=== PATIENT | female | born 1990 | race American Indian/Alaskan Native ===

== ENCOUNTER 2016-12-12 07:26 | Inpatient (IN) | payer BC ==
[~2016-12-12] VITALS: Ht 157.5 cm; Wt 121.1 kg
[~2016-12-12 07:26] MED LIST: PREN-385 PO
[2016-12-12] MEDS ORDERED: LACTATED RINGERS 1,000 ML IV SCH (07:40)
[2016-12-12] MEDS ORDERED: NOVN SUBQ (07:48)
[2016-12-12 08:05] LABS: BASOPHILS # (AUTO) 0.1 K/uL (0.00-0.22); BASOPHILS % (AUTO) 0.7 % (0.0-2.0); EOSINOPHILS # (AUTO) 0.3 K/uL (0-0.4); EOSINOPHILS % (AUTO) 2.5 % (0.0-4.0); HEMATOCRIT 37.1 % (36-48); HEMOGLOBIN 12.4 g/dL (12.0-16.0); LYMPHOCYTES # (AUTO) 3.1 K/uL (2.5-16.5); LYMPHOCYTES % (AUTO) 27.4 % (20.5-51.1); MEAN CORPUSCULAR HEMOGLOBIN 29 pg (27-31); MEAN CORPUSCULAR HGB CONC 33 g/dL (33-37); MEAN CORPUSCULAR VOLUME 85 fL (80-94); MONOCYTES # (AUTO) 0.5 K/uL (0.8-1.0); MONOCYTES % (AUTO) 4.8 % (1.7-9.3); NEUTROPHILS # (AUTO) 7.4 K/uL (1.8-7.7); NEUTROPHILS % (AUTO) 64.6 % (42.2-75.2); PLATELET COUNT (AUTO) 211 K/uL (140-450); RED BLOOD CELL COUNT(AUTO) 4.34 MIL/uL (4.20-5.40); RED CELL DISTRIBUTION WIDTH 13.7 % (11.6-13.7); WHITE BLOOD COUNT (AUTO) 11.4 K/uL (4.8-10.8)
[2016-12-12 08:17] LABS: APPEARANCE,URINE TURBID (CLEAR); BILIRUBIN,URINE NEGATIVE (NEGATIVE); BLOOD, URINE NEGATIVE (NEGATIVE); COLOR,URINE BROWN (YELLOW); LEUKOCYTE ESTERASE ,URINE 1+ (NEGATIVE); NITRITE, URINE NEGATIVE (NEGATIVE); PROTEIN,URINE NEGATIVE (NEGATIVE); UGLUCOSE NEGATIVE (NEGATIVE); UROBILINOGEN,URINE 0.2 EU/dL (0.2 - 1)
[2016-12-12 08:39] LABS: ALBUMIN 2.7 g/dL (3.4-5.0); ANION GAP 12.6 (8-16); CALCIUM 8.7 mg/dL (8.5-10.1); CARBON DIOXIDE 23.3 mmol/L (21-32); CREATININE 0.6 mg/dL (0.6-1.3); POTASSIUM 3.9 mmol/L (3.5-5.1); TOTAL BILIRUBIN 0.3 mg/dL (0.0-1.0); TOTAL PROTEIN, SERUM 6.8 g/dL (6.4-8.2)
[2016-12-12 08:54] LABS: BACTERIA,URINE 1+ /HPF (None Seen); RBC,URINE 0-5 (RARE) /HPF (0-5)
[2016-12-12 09:13] VITALS: BP 103/63
--- NOTE | 2016-12-12 10:09 | NUR ---
PATIENT HAS BEEN SCREENED AND CATEGORIZED LOW NUTRITION RISK. PATIENT WILL BE SEEN WITHIN 7 DAYS OF ADMISSION. 12/18/[address]
[2016-12-12] MEDS ORDERED: BUPIVACAINE-MPF 0.75% 10 ML VIAL INJ ONE (10:55)
[2016-12-12] MEDS ORDERED: ePHEDrine 50 MG/ML VIAL ONE (10:55)
[2016-12-12] MEDS ORDERED: CITRIC ACID/SODIUM CITRATE 30 ML UDC PO SCH (11:00)
[2016-12-12] MEDS ORDERED: fentaNYL 0.05 MG/ML VIAL ONE (11:07)
[2016-12-12] MEDS ORDERED: MORPHINE PRES FREE 10 MG/10 ML AMP IV ONE (11:08)
[2016-12-12] MEDS ORDERED: OXYTOCIN 10 UNITS/ML VIAL ONE (11:16)
[2016-12-12] MEDS ORDERED: KETAMINE 500 MG/5 ML VIAL ONE (11:25)
[2016-12-12] MEDS ORDERED: NALBUPHINE 10 MG/ML AMP IVP PRN (11:30)
[2016-12-12] MEDS ORDERED: NALOXONE 0.4 MG/ML VIAL IVP PRN ×3 (11:30)
[2016-12-12] MEDS ORDERED: KETOROLAC 60 MG/2 ML VIAL IM PRN (11:30)
[2016-12-12] MEDS ORDERED: diphenhydrAMINE 50 MG/ML VIAL IVP PRN (11:30)
[2016-12-12] MEDS ORDERED: BLOOD GLUCOSE MONITORING 1 DEV DEV FS SCH (11:30)
[2016-12-12] MEDS ORDERED: ONDANSETRON 4 MG/2 ML VIAL IVP PRN ×2 (11:30)
[2016-12-12] MEDS ORDERED: OXYTOCIN 20 UNITS/LR PREMIX 1,000 ML IV ONE (12:44)
[2016-12-12] MEDS ORDERED: MAGNESIUM CITRATE 300 ML BTL PO PRN (16:50)
[2016-12-12] MEDS ORDERED: METHYLERGONOVINE 0.2 MG/ML AMP IM PRN (16:50)
[2016-12-12] MEDS ORDERED: MEASLES, MUMPS, AND RUBELLA 1 VIAL SQVAC PRN (16:50)
[2016-12-12] MEDS ORDERED: TRIMETHOBENZAMIDE 200 MG/2 ML SYR IM PRN (16:50)
[2016-12-12] MEDS ORDERED: SIMETHICONE 80 MG TAB.CHEW PO PRN (16:50)
[2016-12-12] MEDS: OXYTOCIN 20 UNITS/LR PREMIX 1,000 ML IV SCH (17:15)
[2016-12-12] MEDS ORDERED: DOCUSATE SOD/SENNA 50/8.6 MG 1 TAB PO SCH (21:00)
[2016-12-13] MEDS: OXYTOCIN 20 UNITS/LR PREMIX 1,000 ML IV SCH (00:45)
[2016-12-13] MEDS ORDERED: HYDROcodone/APAP 5/325 MG 1 TAB TAB PO PRN (06:00)
[2016-12-13] MEDS ORDERED: TEMAZEPAM 15 MG CAP PO PRN (06:00)
[2016-12-13 07:45] LABS: BASOPHILS # (AUTO) 0.1 K/uL (0.00-0.22); BASOPHILS % (AUTO) 0.9 % (0.0-2.0); EOSINOPHILS # (AUTO) 0.2 K/uL (0-0.4); HEMATOCRIT 34.7 % (36-48); HEMOGLOBIN 11.2 g/dL (12.0-16.0); LYMPHOCYTES # (AUTO) 2.4 K/uL (2.5-16.5); LYMPHOCYTES % (AUTO) 23.1 % (20.5-51.1); MEAN CORPUSCULAR HEMOGLOBIN 28 pg (27-31); MEAN CORPUSCULAR HGB CONC 32 g/dL (33-37); MEAN CORPUSCULAR VOLUME 87 fL (80-94); MONOCYTES # (AUTO) 0.7 K/uL (0.8-1.0); MONOCYTES % (AUTO) 6.5 % (1.7-9.3); NEUTROPHILS # (AUTO) 7.2 K/uL (1.8-7.7); NEUTROPHILS % (AUTO) 67.5 % (42.2-75.2); PLATELET COUNT (AUTO) 190 K/uL (140-450); RED BLOOD CELL COUNT(AUTO) 4.01 MIL/uL (4.20-5.40); WHITE BLOOD COUNT (AUTO) 10.6 K/uL (4.8-10.8)
[2016-12-13] MEDS ORDERED: SODIUM PHOSPHATE 118 ML ENEM RC SCH (09:00)
[2016-12-13] MEDS: IBUPROFEN 800 MG TAB PO PRN (13:48)
[2016-12-13] MEDS: oxyCODONE/APAP 5/325 MG 1 TAB TAB PO PRN (20:47)
[2016-12-14] MEDS: IBUPROFEN 800 MG TAB PO PRN (02:24)
[2016-12-14] MEDS ORDERED: IBUP-1842 PO (10:58)
[2016-12-14] MEDS: oxyCODONE/APAP 5/325 MG 1 TAB TAB PO PRN (11:38)
== END 2016-12-14 15:50 | disposition home or self-care (01) | DRG 765 ==
LOC: MLD 07:26 → MFCC 11:00
PROVIDERS: ADMIT Obstetrics & Gynecology; ATTEND Obstetrics & Gynecology
PROC: 0UB70ZZ Excision of Bilateral Fallopian Tubes, Open Approach (ICD-10-PCS; 2016-12-12)
PROC: 3E0234Z Introduction of Serum, Toxoid and Vaccine into Muscle, Percutaneous Approach (ICD-10-PCS; 2016-12-12)
PROC: 10D00Z1 Extraction of Products of Conception, Low, Open Approach (ICD-10-PCS; principal; 2016-12-12 07:30)
DX: O34.211 Maternal care for low transverse scar from previous cesarean delivery (principal); Z68.42 Body mass index [BMI] 45.0-49.9, adult; O69.81X0 Labor and delivery complicated by cord around neck, without compression, not applicable or unspecified; O24.429 Gestational diabetes mellitus in childbirth, unspecified control; O99.214 Obesity complicating childbirth; E66.01 Morbid (severe) obesity due to excess calories; O75.89 Other specified complications of labor and delivery; K21.9 Gastro-esophageal reflux disease without esophagitis; Z3A.38 38 weeks gestation of pregnancy; Z37.0 Single live birth; Z30.2 Encounter for sterilization; Z23 Encounter for immunization
CPT/HCPCS: 36415; 51702; 80053; 81001; 82947; 82948; 85025; 86592; 86886; 86900; 86901; 87081; 87086; 90715; J0690; J1200; J1885; J2270; J2590; J3010; J3490; J7060; J7120